=== PATIENT | female | born 1950 | race Caucasian/White ===

== ENCOUNTER 2024-01-16 13:54 | Day surgery (SDC) | payer MEDICARE ==
[2024-01-16] VITALS (29 sets, daily range): BP systolic 88–136; BP diastolic 50–81
[~2024-01-16] VITALS: Ht 162.6 cm; Wt 78.3 kg
[~2024-01-16 13:54] MED LIST: FLUO10 PO; Hydrocodone-Ap1 EA23 PO; LEVSOD50 PO; Lactated Ringer's 1,000 ML IV SCH; [UNRECOGNIZED DRUG - REMARK]
[2024-01-16] MEDS ORDERED: CREON DR 3,0001 EACH PO (14:29)
[2024-01-16] MEDS ORDERED: OMEPRAZOLE20 M1 PO (14:30)
[2024-01-16] MEDS ORDERED: Prozac20 MG PO (14:31)
--- NOTE | 2024-01-16 14:44 | NUR ---
Ambulatory in Day Surgery History, Chart, Medications and Allergies reviewed before start of procedure. Pre-Op teaching done. Pt verbalizes understanding. Patient States Post-Procedure ride home has been arranged.
[2024-01-16] MEDS ORDERED: propofoL 40 ML IV ONE (15:15)
[2024-01-16] MEDS ORDERED: Midazolam HCl 1MG / ML 2ML Vial ONE (15:15)
--- NOTE | 2024-01-16 15:30 | NUR ---
01/16/24 1530 Mariya Salgado HISTORY, CHART, MEDICATIONS AND ALLERGIES REVIEWED BEFORE START OF PROCEDURE. PATIENT CONFIRMS NPO STATUS AND AGREES WITH SCHEDULED PROCEDURE. 3-LEAD EKG REVIEWED WITH PHYSICIAN PRIOR TO START OF PROCEDURE. MONITOR INTACT WITH CONTINUOUS PULSE OXIMETRY,CAPNOGRAPHY, 3-LEAD EKG, INTERMITTENT BP. SUPPLEMENTAL O2 TO BE TITRATED THROUGHOUT PROCEDURE TO MAINTAIN O2 SATURATION ABOVE 90%. PATIENT DETERMINED TO BE ASA APPROPRIATE FOR PROPOFOL SEDATION PRIOR TO START OF PROCEDURE BY .
--- NOTE | 2024-01-16 16:58 | NUR ---
Ambulatory in Day Surgery. Discharge instructions reviewed with patient. Patient verbalizes understanding. Copy given to patient to take home. Patient States Post-Procedure ride home has been arranged. Discharged via wheelchair to private car for ride home. ALL BELONGINGS RETURNED TO PT.
== END 2024-01-16 22:56 | disposition home or self-care (01) ==
LOC: ORSCSDS 13:54 → ORSCMMR 13:54 → ORSCSDS 14:45
PROVIDERS: Internal Medicine Gastroenterology
PROC: 0DB98ZX Excision of Duodenum, Via Natural or Artificial Opening Endoscopic, Diagnostic (ICD-10-PCS; principal; 2024-01-16 14:45)
PROC: 0DBP8ZX Excision of Rectum, Via Natural or Artificial Opening Endoscopic, Diagnostic (ICD-10-PCS; principal; 2024-01-16 14:45)
PROC: 0DBK8ZX Excision of Ascending Colon, Via Natural or Artificial Opening Endoscopic, Diagnostic (ICD-10-PCS; principal; 2024-01-16 14:45)
DX: R19.7 Diarrhea, unspecified (principal); D12.2 Benign neoplasm of ascending colon; K62.1 Rectal polyp; K21.9 Gastro-esophageal reflux disease without esophagitis
CPT/HCPCS: 88305; J2250; J2704; J7120